=== PATIENT | female | born 1980 | race Caucasian/White ===

== ENCOUNTER 2023-03-15 02:53 | Outpatient (OUT) | payer BC, SELFPAY ==
[2023-03-15 03:05] LABS: SARS-CoV-2 Ag POSITIVE (NEGATIVE)
== END 2023-03-15 02:54 | disposition home or self-care (01) ==
PROVIDERS: PCP Nurse Practitioner; Visit Provider Emergency Medicine
DX: U07.1 COVID-19 (principal)
CPT/HCPCS: 87811

== ENCOUNTER 2023-12-02 21:01 | Emergency (ER) | payer BC, SELFPAY ==
[2023-12-02 21:11] VITALS: BP 167/95; PULSE 100; TEMP 36.4; O2SAT 100; BMI 25.3
--- NOTE | 2023-12-02 21:55 | ED_ITS ---
HPI - Wound/Laceration General Chief Complaint: Wound/Laceration Stated Complaint: Upper Extremity Injury, Laceration Time Seen by Provider: 12/02/23 21:26 Source: patient Mode of arrival: walk-in Limitations: no limitations History of Present Illness HPI narrative: Patient is a 43-year-old female [id number] who presents to the ER with concerns of laceration to the right hand. Patient was doing dishes when she struck her hand on a sharp knife suffering a 2.5 cm laceration to the radial aspect of the second MCP joint. Bleeding controlled on arrival. She is unsure of her last tetanus.Patient has no other complaints.Injury occurred just prior to arrival, pain is minimal Extremity Location: Right: hand Place: Reports home Patient tetanus UTD: No Associated symptoms: Reports pain; Denies loss of feeling/numbness Related Data Home Medications ?Medication ?Instructions ?Recorded ?Confirmed levothyroxine 75 mcg tablet 75 mcg PO .qd 12/02/23 12/02/23 rosuvastatin 20 mg tablet 20 mg PO QDAY 12/02/23 12/02/23 Allergies Allergy/AdvReac Type Severity Reaction Status Date / Time Latex, Natural Rubber Allergy Verified 12/02/23 21:10 Penicillins Allergy Verified 12/02/23 21:10 Sulfa (Sulfonamide Allergy Anaphylaxis Verified 12/02/23 21:10 Antibiotics) Review of Systems ROS Constitutional Denies: fever Integumentary/Breast Denies: rash Neurological Denies: weakness in extremities Exam Narrative Exam Narrative: Nurse's notes and vital signs reviewed. Patient is not hypoxic. General: The patient appears well and in no apparent distress. Patient is resting comfortably on cart. Skin: Warm, dry, no pallor noted.2.5 cm linear laceration to the radial aspect of the second MCP joint. No involvement of the extensor tendon. Head: Normocephalic, atraumatic Eye: Normal conjunctiva Respiratory: Patient is in no distress Musculoskeletal: The Right hand and wrist shows no obvious deformity. localized laceration. no MCP joint disability. There was minimal swelling noted. The patient had full ROM of the index finger. The patient had tenderness noted to radial aspect 2nd mcp joint The patient had no tenderness in the anatomical snuff box. The patient had no pain with axial loading of the thumb. Pulses are intact at brachial and radial 2+. There was no deficit at the elbow or shoulder. The patient has normal capillary refill to all distal digits. The patient has no evidence of cyanosis or mottling. The patient is able to flex and extend all digits without difficulty. Neurological: A&O x4, normal sensory, normal motor Psychiatric: Cooperative Constitutional Vital Signs, click to edit/add: Last Vital Signs Temp 97.6 F 12/02/23 21:11 Pulse 74 12/02/23 22:10 Resp 18 12/02/23 22:10 BP 146/89 H 12/02/23 22:10 Pulse Ox 100 12/02/23 22:10 O2 Del Method Room Air 12/02/23 22:10 Course Vital Signs Vital signs: Vital Signs Temperature 97.6 F 12/02/23 21:11 Pulse Rate 100 H 12/02/23 21:11 Respiratory Rate 14 12/02/23 21:11 Blood Pressure 167/95 H 12/02/23 21:11 Pulse Oximetry 100 12/02/23 21:11 Oxygen Delivery Method Room Air 12/02/23 21:11 Temperature 97.6 F 12/02/23 21:11 Pulse Rate 74 12/02/23 22:10 Respiratory Rate 18 12/02/23 22:10 Blood Pressure 146/89 H 12/02/23 22:10 Pulse Oximetry 100 12/02/23 22:10 Oxygen Delivery Method Room Air 12/02/23 22:10 MDM - Wound/Laceration MDM Narrative Medical decision making narrative: Localized laceration to the MCP joint of the right index finger,Evidence of extensor tendon involvement, sensation intact distally. Patient able to make th e okay sign without difficulty. We discussed wound and suture care, suture removal likely in 10 days. Patient may continue to work as she keeps the area clean dry and covered. We discussed no heavy gripping with the right hand, but patient is left-hand dominant and will still likely be able to do her job. She may call with any concerns. The patient is to followup with primary care physician in next 10 days or to return to the emergency department should any of the signs or symptoms worsen or new symptoms develop. Patient had questions answered. The patient agrees with the following Diagnosis and Treatment plan and the patient will be discharged home. Differential Diagnosis Differential diagnosis: Likely laceration Discharge Plan Discharge Stand Alone Forms: Portal Instructions Chief Complaint: Wound/Laceration Clinical Impression: Laceration of hand, right Patient Disposition: Home, Self-Care Time of Disposition Decision: 21:56 Condition: Good Mode of Transportation: Private Vehicle Prescriptions / Home Meds: No Action levothyroxine 75 mcg tablet 75 mcg PO .qd rosuvastatin 20 mg tablet 20 mg PO QDAY Print Language: Occitan Instructions: Laceration (ED) Additional Instructions: recommend Suture removal in 10 days. Referrals: ZAY CARRASQUILLO [Primary Care Provider] - 12/12/23 Discharge Date/Time: 12/02/23 22:10 Procedures ED Laceration Laceration Laceration 1: Additional comments: Laceration repair: Done under sterile conditions. The use of Betadine was used to prep and clean the area. Local injection with lidocaine 1% was used, approximately 2 cc. The wound was irrigated copiously with normal saline. The wound was explored there was no evidence of foreign material. no involvement of extensor tendon or MCP joint capsule. The laceration was approximated with 5-0 nylon. 7 simple interrupted sutures were placed. Patient tolerated the procedure well. The patient was neurovascularly intact post. the patient had bacitracin applied to the laceration and a dry sterile dressing was place. The patient will need to follow-up in the next 10 days for removal.
[2023-12-02] MEDS: LIDOCAINE HCL 1% PF 50 MG/5 ML VIAL INJ (22:03)
[2023-12-02] MEDS: ADACEL DIPH,PERTUSS(ACELL),TET VAC/PF 0.5 ML ADULT SYRINGE IM (22:04)
[2023-12-02] MEDS: BACITRACIN 0.9 GM PACKET 1 PACKET TOPICAL (22:05)
[2023-12-02 22:10] VITALS: BP 146/89; PULSE 74; O2SAT 100
== END 2023-12-02 22:10 | disposition home or self-care (01) ==
PROVIDERS: Emergency Provider Internal Medicine; PCP Nurse Practitioner
DX: S61.411A Laceration without foreign body of right hand, initial encounter (principal); Z23 Encounter for immunization; W26.0XXA Contact with knife, initial encounter
CPT/HCPCS: 12001; 90471; 90715; 99283